=== PATIENT | female | born 1980 | race Caucasian/White ===

== ENCOUNTER 2016-05-27 17:44 | Emergency (ER) | payer OTHER ==
[2016-05-27 18:49] LABS: Bilirubin Negative (Negative); Blood, Urine Negative (Negative); Glucose, Urine (Dipstick) Negative (Negative); Ketone, Urine Negative (Negative); Nitrite Negative (Negative); Protein, Urine (Dipstick) Negative (Neg-Trace); Urobilinogen 0.2 mg/dL (0.2-1.0)
[2016-05-27 18:51] LABS: Bacteria/HPF 1+ HPF (None Seen); Hyaline Casts/LPF NONE SEEN LPF (0-3 Hyaline); Oval Fat Bodies/HPF None Seen HPF (None Seen); RBC/HPF None Seen HPF (0-3); Renal Epithelial None Seen HPF (0-3); Sperm/HPF None Seen HPF (None Seen); Squamous Epithelial None Seen HPF (0-3); Transitional Epithelial NONE SEEN HPF (0-3); Trichomonas/HPF None Seen HPF (None Seen); WBC/HPF 0-3 HPF (0-3); Yeast-All Forms None Seen HPF (None Seen)
[2016-05-27] MEDS ORDERED: Ketorolac Tromethamine 30 MG/ML VIAL ONE (19:33)
[2016-05-27 19:35] LABS: #Basophils 0.1 thou/uL (0.0-0.2); #Eosinphils 0.3 thou/uL (0.0-0.7); #Lymphocytes 3.4 thou/uL (1.20-3.40); #Monocytes 0.5 thou/uL (0.11-0.59); #Neutrophils 6.6 thou/uL (1.40-6.50); %Basophils 0.8 % (0.0-1.0); %Eosinophils 2.6 % (0.0-10.0); %Monocytes 4.5 % (0.0-10.0); Hematocrit 44.1 % (36.0-47.0); Mean Platelet Volume 8.8 fL (7.4-10.4); Red Blood Cell (RBC) Count 5.03 mill/uL (4.20-5.40); White Blood Cell (WBC) Count 10.9 thou/uL (4.8-10.8)
[2016-05-27 19:50] LABS: ALT (SGPT) 22 U/L (0-55); AST (SGOT) 15 U/L (5-34); Alkaline Phosphatase 109 U/L (40-150); Anion Gap 13 mmol/L (10-20); BUN (Urea Nitrogen) 10 mg/dL (7.0-18.7); Bilirubin, Total 0.4 mg/dL (0.2-1.2); Calc. Creatinine Clearance 0 mL/min (70-130); Calcium 9.5 mg/dL (7.8-10.44); Carbon Dioxide 25 mmol/L (22-29); Chloride 105 mmol/L (98-107); Estimated GFR-MDRD Greater than 90; Globulin 3.5 g/dL (2.4-3.5); Protein, Total 7.8 g/dL (6.0-8.3)
[2016-05-27] MEDS ORDERED: HYDROcodone/Acetaminophen 10/325 mg Tablet ONE (20:26)
--- NOTE | 2016-05-27 21:11 | PICIS ---
[facility] EMERGENCY RECORD TRIAGE (ThuMay 27, 2016 18:12 ERUI) TRIAGE NOTES: C/O LEFT SIDE, LOWER ABD PAIN, SHARP, ONSET YESTERDAY, NO N/V/D. (ThuMay 27, 2016 18:12 ERUI) PATIENT: NAME: Leila Mckeon, AGE: 36, GENDER: female, : Thu1980, TIME OF GREET: ThuMay 27, 2016 17:44, PREFERRED LANGUAGE: Vietnamese, ETHNICITY: Not or , ECODE BILLING MAP: [facility], SSN: [id number], Zip Code: [address], KG WEIGHT: [phone], PHONE: , , , PERSON ID: [id number], PAY[place]: [place], PCP: OOT. (ThuMay 27, 2016 18:12 ERUI) COMPLAINT: LOWER ABD PAIN. (ThuMay 27, 2016 18:12 ERUI) ADMISSION: URGENCY: 3 Urgent, ADMISSION SOURCE: Home, TRANSPORT: CAR, BED: TRIAGE. (ThuMay 27, 2016 18:12 ERUI) TRIAGE SCREENING: Patient denies suicidal ideation, Patient denies presence of domestic violence. (18:16 ERUI) LMP: Last menstrual period: 05/13/2016. (18:16 ERUI) TREATMENTS IN PROGRESS: Treatments given Prehospital: NONE. (18:16 ERUI) PROVIDERS: TRIAGE NURSE: Stacie Acevedo RN. (ThuMay 27, 2016 18:12 ERUI) PREVIOUS VISIT ALLERGIES: No Known Drug Allergies. (ThuMay 27, 2016 18:12 ERUI) No Known Drug Allergies. (18:16 ERUI) KNOWN ALLERGIES No Known Allergies (Unconfirmed) No Known Drug Allergies CURRENT MEDICATIONS Cymbalta: CAPSULE,DELAYED RELEASE (ENTERIC COATED) : Strength - 30 mg : ORAL Patient Dose: Unknown. (20:22 KSPL) risperiDONE: TABLET : Strength - 0.5 mg : ORAL Patient Dose: Unknown. (20:23 KSPL) Cipro: TABLET : Strength - 500 mg : ORAL Patient Dose: 2 times a day. (20:23 KSPL) FLUoxetine: CAPSULE : Strength - 40 mg : ORAL Patient Dose: Unknown. (20:23 KSPL) Zantac: CAPSULE : Strength - 150 mg : ORAL Patient Dose: Unknown. (20:24 KSPL) VITAL SIGNS VITAL SIGNS: BP: 132/76, Pulse: 89, Resp: 20, Temp: 98.2 (Oral), Pain: 5, O2 sat: 97 on Room Air, Time: 05/27/2016 18:13. (18:13 ERUI) BP: 114/58, Pulse: 80, Resp: 18, Pain: 1, O2 sat: 99 on Room Air, Time: 05/27/2016 20:15. (20:15 KSPL) &a-1R&a+25V*p+0X*h4615G*c202B*c15G*c2P*p-0X&a-25V&a+1R Name: Leila Mckeon : 1980 F36 MedRec: [id number] AcctNum: [id number] Prepared: Kristian May 27, 2016 20:52 by Interface Page 1 of 9 pMD [facility] EMERGENCY RECORD Temp: 97.9 (Oral), Time: 05/27/2016 20:38. (20:38 MVIL) NURSING ASSESSMENT: ABDOMEN (18:16 ERUI) CONSTITUTIONAL: Patient arrives ambulatory, Gait steady, History obtained from patient, Patient appears comfortable, Patient cooperative, Patient alert, Oriented to person, place and time, Skin warm, Skin dry, Patient complains of LEFT LOWER ABD PAIN. PAIN: sharp pain, stabbing pain, to the left lower quadrant, Onset of pain 2 DAYS, on a scale 0-10 patient rates pain as 5, Pain exacerbated by, Pain exacerbated by, ambulation, Pain relieved by, SITTING DOWN. ABDOMEN: Abdomen assessment findings include abdomen symmetrical, Abdomen soft, tender, Bowel sound normal, no associated nausea, no associated vomiting, no associated diarrhea, no associated constipation, Date of last bowel movement: YESTERDAY. GENITOURINARY FEMALE: no associated urinary complaints, no associated vaginal discharge, Not . SAFETY: Side rails up, Cart/Stretcher in lowest position, Family at bedside, Call light within reach, Hospital ID band on. NURSING PROCEDURE: DISCHARGE NOTE (20:39 MVIL) DISCHARGE: Patient discharged to home, ambulating without assistance, family driving, accompanied by parent, Summary of Care printed/ provided, Patient requested and was provided an electronic copy of Discharge Instructions, Transition record given to patient, Discharge instructions given to patient, Prescriptions given and instructions on side effects given, Medication reconciliation form given, Above person(s) verbalized understanding of discharge instructions and follow-up care. BELONGINGS: Belongings and valuables with patient at time of discharge include:. NURSING PROCEDURE: IV (19:24 KSPL) PATIENT IDENITIFIER: Patient actively involved in identification process, Patient's identity verified by patient stating name, Patient's identity verified by patient stating date. IV SITE 1: IV therapy indicated for hydration, IV therapy indicated for medication administration, IV established, to the right antecubital, using a 20 gauge catheter, in one attempt, IV site prepped with chloroprep, Saline lock established, Flushed with normal saline (mls): 10 mls, Labs drawn at time of placement, labeled in the presence of the patient and sent to lab. SAFETY: Side rails up, Cart/Stretcher in lowest position, Family at bedside, Call light within reach, Hospital ID band on. NURSING PROCEDURE: TRANSPORT TO TESTS PATIENT IDENTIFIER: Patient actively involved in identification process, Patient's identity verified by patient stating name, Patient's identity verified by patient stating date. (19:36 KSPL) &a-1R&a+25V*p+0X*b7462I*c202B*c15G*c2P*p-0X&a-25V&a+1R Name: Leila Mckeon Isaiah : 1980 F36 MedRec: [id number] AcctNum: [id number] Prepared: Kristian May 27, 2016 20:52 by Interface Page 2 of 9 D [facility] EMERGENCY RECORD Patient actively involved in identification process, Patient's identity verified by patient stating name, Patient's identity verified by patient stating date. (19:58 KSPL) TRANSPORT TO TESTS: Transport indicated to facilitate diagnosis, Patient transported to CT scan, via wheelchair, Accompanied by x-ray ophthalmic technician apprentice, Accompanied by nurse. (19:36 KSPL) FOLLOW-UP: After procedure, patient returned to emergency department. (19:58 KSPL) ORDER DETAILS Order Name: CBC with Differential, Status: Active, Time: 19:12 05/27/2016, User: RICHAR, - Ordered for: DO Du Joseph, - Entered by: DO Du Joseph - Tue May 27, 2016 19:12, - Quantity: 1, Order Name: Comprehensive Metabolic Panel, Status: Active, Time: 19:12 05/27/2016, User: RICHAR, - Ordered for: DO Du Joseph, - Entered by: DO Du Joseph - Tue May 27, 2016 19:12, - Quantity: 1, Order Name: CT Abdomen Pelvis W Con, Status: Active, Time: 19:11 05/27/2016, User: RICHAR, - Ordered for: DO Du Joseph, - Entered by: DO Du Joseph - Tue May 27, 2016 19:11, - Quantity: 1, Order Name: Test, Urine (BHCG), Status: Active, Time: 19:11 05/27/2016, User: RICHAR, - Ordered for: DO Du Joseph, - Entered by: DO Du Joseph - Tue May 27, 2016 19:11, - Quantity: 1, Order Name: SALINE LOCK, Status: Done, Time: 19:32 05/27/2016, User: RACHELE, - Ordered for: DO Du Joseph, - Entered by: DO Du Joseph - Tue May 27, 2016 19:12, - Quantity: 1, Order Name: Urinalysis w/ Rflx Microscopic, Status: Active, Time: 18:14 05/27/2016, User: RICHAR, - Ordered for: DO Du Joseph, - Entered by: DO Du Joseph - Tue May 27, 2016 18:14, - Quantity: 1. MEDICATION ADMINISTRATION SUMMARY Drug Name: [place], Dose Ordered: 10 mg, Route: Oral, Status: Given, Time: 20:32 05/27/2016, Drug Name: Toradol injection, Dose Ordered: 30 mg, Route: IV Push, Status: Given, Time: 19:34 05/27/2016, Detailed record available in Medication Service section. &a-1R&a+25V*p+0X*i3817T*c202B*c15G*c2P*p-0X&a-25V&a+1R Name: Leila Mckeon : 1980 F36 MedRec: [id number] AcctNum: [id number] Prepared: ThuMay 27, 2016 20:52 by Interface Page 3 of 9 pMD [facility] EMERGENCY RECORD MEDICATION SERVICE [place]: Order: [place] (hydrocodone bitartrate/acetaminophen) - Dose: 10 mg : Oral Schedule: Now Ordered by: All Du DO Entered by: All Du DO ThuMay 27, 2016 20:26 , Acknowledged by: Susan Smith RN ThuMay 27, 2016 20:28 Documented as given by: Mildred Fierro RN May 27, 2016 20:32 Patient, Medication, Dose, Route and Time verified prior to administration. Amount given: 10MG, Correct patient, time, route, dose and medication confirmed prior to administration, Patient advised of actions and side-effects prior to administration, Allergies confirmed and medications reviewed prior to administration, Patient in position of comfort, Side rails up, Cart in lowest position, Family at bedside. Toradol injection: Order: Toradol injection (ketorolac tromethamine) - Dose: 30 mg : IV Push Schedule: Now Ordered by: All Du DO Entered by: All Du DO ThuMay 27, 2016 19:13 , Acknowledged by: Susan Smith RN ThuMay 27, 2016 19:32 Documented as given by: Susan Smith RN May 27, 2016 19:34 Patient, Medication, Dose, Route and Time verified prior to administration. Amount given: 30mg, IV SITE #1 IVP, initial medication, Slowly, Awake and alert- acceptable, Connections checked prior to administration, Line traced prior to administration, Catheter placement confirmed via flush prior to administration, IV site without signs or symptoms of infiltration during medication administration, No swelling during administration, No drainage during administration, IV flushed after administration, Correct patient, time, route, dose and medication confirmed prior to administration, Patient advised of actions and side-effects prior to administration, Allergies confirmed and medications reviewed prior to administration, Patient in position of comfort, Side rails up, Cart in lowest position, Family at bedside, Call light in reach, no incident, pt tolerated well. : Follow Up : Response assessment performed, No signs or symptoms of allergic reaction noted, _IV SITE #1:_, Advised not to ambulate without assistance, Patient in position of comfort, Side rails up, Cart in lowest position, Family at bedside, pt rating pain at a 1, states "it feels better". pt sitting in bed, friend at bedside, pt denies any needs at this time, no s/sx of distress noted. (19:59 KSPL) HPI ABDOMINAL PAIN (18:40 JPIP) CHIEF COMPLAINTS: Patient presents for evaluation of abdominal pain. HISTORIAN: History provided by &a-1R&a+25V*p+0X*k5937E*c202B*c15G*c2P*p-0X&a-25V&a+1R Name: Leila Mckeon : 1980 F36 MedRec: [id number] AcctNum: [id number] Prepared: Kristian May 27, 2016 20:52 by Interface Page 4 of 9 pMD [facility] EMERGENCY RECORD patient. LOCATION FEMALE: Symptoms are localized, most severe in the left lower quadrant. QUALITY: Pain is sharp in nature. SEVERITY: Current severity of pain rated as 5/10. TIME COURSE: Sudden onset of symptoms, Date and time of onset was yesterday, Symptoms are improving. ASSOCIATED WITH FEMALE: No associated chills, No associated constipation, No associated diarrhea, No associated fever, No associated hematuria, No associated loss of appetite, No associated melena, No associated nausea, No associated urinary tract infection signs or symptoms, No associated vomiting, worse with standing. RELIEVED BY: Patient's condition not relieved by bowel movement, Patient's condition not relieved by food, Patient's condition relieved by sittting helps. EXACERBATED BY: Patient's condition exacerbated by walking, Patient's condition exacerbated by standing. ROS (18:41 JPIP) CONSTITUTIONAL: Historian denies chills, denies fever. GI: Historian reports abdominal pain, denies constipation, denies diarrhea, denies nausea, denies vomiting. GENITOURINARY FEMALE: Historian denies dysuria, denies frequency, denies hematuria, denies urgency. SKIN: Historian reports rash, umbilical infection she is currently on ?? ABX for this. NOTES: All systems reviewed, negative except as described above. PAST MEDICAL HISTORY MEDICAL HISTORY: Notes: ASTHMA, Flu vaccine not up to date, Tetanus not up to date, Pneumococcal vaccine not up to date. (18:16 ERUI) FEMALE SURGICAL HISTORY: Surgical history of section, Date of surgery 2006, Surgical history of section hernia repair, 05/27/16. (18:16 ERUI) PSYCHIATRIC HISTORY: Psychiatric history includes history of suicide attempts, by Overdose, Psychiatric history includes, depression.Verified 05/27/16. (18:16 ERUI) SOCIAL HISTORY: Patient denies alcohol use, Patient denies drug use, Patient currently uses tobacco, smokes cigarettes, daily, Patient smokes 1/2 packs per day, Lives at home, alone, Patient denies alcohol use, Patient denies drug use, Patient currently uses tobacco, smokes cigarettes, daily, Patient smokes 1 pack per day.RevieweD 05/27/16. (18:16 ERUI) NOTES: Nursing records reviewed, Medication list reviewed. (18:45 JPIP) PHYSICAL EXAM (18:44 JPIP) CONSTITUTIONAL: Vital Signs Reviewed, Patient afebrile, Pulse normal, Blood pressure normal, Respiratory rate normal, Patient appears, in mild pain distress, Patient alert and &a-1R&a+25V*p+0X*h8189C*c202B*c15G*c2P*p-0X&a-25V&a+1R Name: Leila Mckeon : 1980 F36 MedRec: [id number] AcctNum: [id number] Prepared: Kristian May 27, 2016 20:52 by Interface Page 5 of 9 pMD [facility] EMERGENCY RECORD oriented to person, place and time, Nursing notes reviewed. HEAD: Head exam included findings of head atraumatic, normocephalic. EYES: Eye exam included findings of eyelids normal to inspection, Conjunctiva normal, Sclera normal, no periorbital ecchymosis, no periorbital edema, no periorbital erythema. RESPIRATORY CHEST: Respiratory exam included findings of no respiratory distress, Breath sounds clear. CARDIOVASCULAR: Cardiovascular exam included findings of heart rate regular rate and rhythm, Heart sounds normal. ABDOMEN FEMALE: Abdominal exam included findings of abdomen tender, to the left lower quadrant, to the suprapubic region, moderate intensity, Bowel sounds, hypoactive, Liver normal, Spleen normal, Distension present, no mass, no pulsatile masses, no peritoneal signs, no rigidity, no guarding, no rebound. BACK: no costovertebral angle tenderness. UPPER EXTREMITY: Upper extremity exam included findings of inspection normal, Range of motion normal. NEURO: [place] coma scale 15, Neuro exam findings include patient oriented to person, place and time. SKIN: Skin exam included findings of skin warm, dry, and normal in color, Rash present, umbilical DC, clear yellow dried, no bleeding. PSYCHIATRIC: Psychiatric exam included findings of patient oriented to person place and time, Normal affect. LAB INTERPRETATION (20:22 JPIP) INTERPRETATION: CBC abnormal, White blood cell count elevated, Neutrophils elevated, Chemistry normal, Liver functions normal, Urinalysis abnormal, positive for leukocytes, positive for bacteria, Urine HCG negative, patient is on septra for an umbilical infection. EVENTS TRANSFER: Triage to Emergency Triage. (ThuMay 27, 2016 18:12 ERUI) Emergency Triage to Emergency Room -05. (18:27 ERUI) Removed from Emergency Emergency Room -05. (20:48 MVIL) O2SAT INTERPRETATION (18:14 JPIP) O2SAT: Single pulse oximetry, Oxygen saturation 97%, on room air, Oxygen saturation interpretation: Normal, No intervention required. PROBLEM LIST No recorded problems DIAGNOSIS (20:26 JPIP) FINAL: PRIMARY: Lower abdominal pain, ADDITIONAL: &a-1R&a+25V*p+0X*m2814D*c202B*c15G*c2P*p-0X&a-25V&a+1R Name: Leila Mckeon Isaiah : 1980 F36 MedRec: [id number] AcctNum: [id number] Prepared: ThuMay 27, 2016 20:52 by Interface Page 6 of 9 pMD [facility] EMERGENCY RECORD umphalitis. DISPOSITION PATIENT: Disposition Type: Discharge, Disposition: *Discharge Home, Condition: Good. (20:26 JPIP) Patient left the department. (20:48 MVIL) INSTRUCTION (20:25 JPIP) DISCHARGE: COLITIS NONINFECTIOUS CHILD ADULT, ABDOMINAL PAIN, UNKNOWN CAUSE, (FEMALE). SPECIAL: Follow up with Primary Care Physician within 72 hours If symptoms worsen please return to the ED Return to the Emergency Department for increased symptoms problems or concerns Take acetaminophen or ibuprofen for pain. PRESCRIPTION mupirocin: OINTMENT (GRAM) : 2 % : TOPICAL : Quantity: apply Unit: mg Route: TOPICAL Schedule: 2 times a day Dispense: 22 grams May substitute. Refills: No Refills . (20:22 JPIP) NOTES: No refills. (20:22 JPIP) Levsin/SL: TABLET, SUBLINGUAL : 0.125 mg : SUBLINGUAL : Quantity: 1 Unit: tab(s) Route: SUBLINGUAL Schedule: every 4 hours prn Dispense: 30 May substitute. Refills: No Refills . (20:24 JPIP) NOTES: For abdominal pain and cramps No refills. (20:24 JPIP) IMAGING *DISCHARGE INSTRUCTIONS RECEIPT: Image captured from scanner. (20:33 MVIL) *SUPPLY CHARGE SHEET: Image captured from scanner. (20:34 MVIL) RESULTS LABORATORY: Urine Microscopic Collection DT: ThuMay 27, 2016 18:33, RBC/HPF None Seen HPF, Range (0-3), WBC/HPF 0-3 HPF, Range (0-3), Squamous Epithelial None Seen HPF, Range (0-3), Transitional Epithelial NONE SEEN HPF, Range (0-3), Renal Epithelial None Seen HPF, Range (0-3), *Bacteria/HPF 1+ - H HPF, Range (None Seen), Yeast-All Forms None Seen HPF, Range (None Seen), Trichomonas/HPF None Seen HPF, Range (None Seen), Oval Fat Bodies/HPF None Seen HPF, Range (None Seen), Sperm/HPF None Seen HPF, Range (None Seen), Hyaline Casts/LPF NONE SEEN LPF, Range (0-3 Hyaline). (19:11 JPIP) Urinalysis w/ Rflx Microscopic Collection DT: ThuMay 27, 2016 18:33, Color Yellow , Range (Yellow), &a-1R&a+25V*p+0X*d9286E*c202B*c15G*c2P*p-0X&a-25V&a+1R Name: Leila Mckeon : 1980 F36 MedRec: [id number] AcctNum: [id number] Prepared: ThuMay 27, 2016 20:52 by Interface Page 7 of 9 pMD [facility] EMERGENCY RECORD Clarity Cloudy , Range (Clear), Specific [place], Urine 1.020 , Range (1.005-1.030), pH, Urine 6.0 , Range (5.0-9.0), *Leukocyte Trace - H , Range (Negative), Nitrite Negative , Range (Negative), Protein, Urine (Dipstick) Negative mg/dL, Range (Neg-Trace), Glucose, Urine (Dipstick) Negative mg/dL, Range (Negative), Ketone, Urine Negative mg/dL, Range (Negative), Urobilinogen 0.2 mg/dL, Range (0.2-1.0), Bilirubin Negative , Range (Negative), Blood, Urine Negative , Range (Negative). (19:11 JP) Test, Urine (BHCG) Collection DT: ThuMay 27, 2016 19:29, Test - Urine (BHCG) NEGATIVE , Range (NEGATIVE), Method of sensitivity- Indeterminant: results should be repeated, after 48 hours. Positive: results may be detected as early as 4-5 days before a first missed menses. Elimination of BHCG-, Elimination following first trimester D&C: 29-44 Days , Elimination following term : 8-24 Days , Specific [place] 1.020 , Range (1.002-1.036). (19:34 JP) CBC with Differential Collection DT: ThuMay 27, 2016 19:31, *White Blood Cell (WBC) Count 10.9 - H thou/uL, Range (4.8-10.8), Red Blood Cell (RBC) Count 5.03 mill/uL, Range (4.20-5.40), Hemoglobin 13.9 g/dL, Range (12.0-16.0), Hematocrit 44.1 %, Range (36.0-47.0), Mean Corpuscular Volume 87.6 fl, Range (81.0-99.0), Mean Corpuscular Hemoglobin 27.7 pg, Range (27.0-31.0), *Mean Corpuscular HGB CONC 31.6 - L g/dL, Range (32.0-36.0), RBC Distribution Width 13.5 %, Range (11.5-14.5), Platelet Count 257 thou/uL, Range (130-400), Mean Platelet Volume 8.8 fL, Range (7.4-10.4), %Neutrophils 60.5 %, Range (42.0-75.0), %Lymphocytes 31.5 %, Range (21.0-51.0), %Monocytes 4.5 %, Range (0.0-10.0), %Eosinophils 2.6 %, Range (0.0-10.0), %Basophils 0.8 %, Range (0.0-1.0), *#Neutrophils 6.6 - H thou/uL, Range (1.40-6.50), #Lymphocytes 3.4 thou/uL, Range (1.20-3.40), #Monocytes 0.5 thou/uL, Range (0.11-0.59), #Eosinphils 0.3 thou/uL, Range (0.0-0.7), #Basophils 0.1 thou/uL, Range (0.0-0.2). (19:40 [facility]) Comprehensive Metabolic Panel Collection DT: ThuMay 27, 2016 19:31, Sodium 139 mmol/L, Range (136-145), Potassium 4.0 mmol/L, Range (3.5-5.1), Chloride 105 mmol/L, Range (98-107), &a-1R&a+25V*p+0X*b4096F*c202B*c15G*c2P*p-0X&a-25V&a+1R Name: Moncho Mckeonrory Colon : 1980 F36 MedRec: [id number] AcctNum: [id number] Prepared: ThuMay 27, 2016 20:52 by Interface Page 8 of 9 pMD [facility] EMERGENCY RECORD Carbon Dioxide 25 mmol/L, Range (22-29), Anion Gap 13 mmol/L, Range (10-20), BUN (Urea Nitrogen) 10 mg/dL, Range (7.0-18.7), Creatinine 0.73 mg/dL, Range (0.6-1.1), Estimated GFR-MDRD Greater than 90 , Reference Range for Estimated GFR: Greater than 90, mL/min/1.73 m2 NOTE: The MDRD equation has not been validated for use, with the elderly (over 70 years of age), women, patients with, serious comorbid condition or persons with extremes of body size, muscle, mass, or nutritional status. , Glucose 84 mg/dL, Range (70-105), Calcium 9.5 mg/dL, Range (7.8-10.44), Bilirubin, Total 0.4 mg/dL, Range (0.2-1.2), Protein, Total 7.8 g/dL, Range (6.0-8.3), NOTE: Plasma values are generally 0.3 to 0.5 g/dL higher than serum values, due to the presence of fibrinogen. , Albumin 4.3 g/dL, Range (3.5-5.0), Globulin 3.5 g/dL, Range (2.4-3.5), Alb/Glob Ratio 1.2 g/dL, Range (1.2-2.2), Alkaline Phosphatase 109 U/L, Range (40-150), AST (SGOT) 15 U/L, Range (5-34), ALT (SGPT) 22 U/L, Range (0-55). (19:56 [facility]) Ray: ERUI=FANTASMA Acevedo, Stacie LEEIP=DO Du Joseph KSANASTASIA=FANTASMA Smith, Susan MVIL=FANTASMA Fierro, Mildred &a-1R&a+25V*p+0X*h7787M*c202B*c15G*c2P*p-0X&a-25V&a+1R Name: Moncho Mckeonrory Colon : 1980 F36 MedRec: [id number] AcctNum: [id number] Prepared: Kristian May 27, 2016 20:52 by Interface Page 9 of 9 pMD MTDD
--- NOTE | 2016-05-28 06:19 | CT ---
PRELIMINARY REPORT/[facility]/EMERGENCY AFTER HOURS PROCEDURE: EXAM: CT Abdomen and Pelvis With Intravenous Contrast. CLINICAL HISTORY: 36 years old, female; Pain; Abdominal pain; Localized; Lower; Patient HX: Pt presents to the er for lower abdomen pain; C/O left side, lower abd pain, sharp, onset yesterday, no n/v/d. R/O diverticuli tis; Additional info: iv contrast only per er md TECHNIQUE: Axial computed tomography images of the abdomen and pelvis with intravenous contrast. Coronal reformatted images were created and reviewed. CONTRAST: 94 mL of ISOVUE 370 administered intravenously. COMPARISON: No relevant prior studies available. FINDINGS: Artifacts: There is detector artifact which somewhat limits evaluation of objects in the center of t he field of view. Lower thorax: No acute findings. ABDOMEN: Liver: There is hepatomegaly. Gallbladder and bile ducts: Unremarkable. No calcified stones. No ductal dilation. Pancreas: Unremarkable. No mass. No ductal dilation. Spleen: Unremarkable. No splenomegaly. Adrenals: There is mild nodular thickening of the left adrenal gland. Kidneys and ureters: Unremarkable. No solid mass. No hydronephrosis. Stomach and bowel: Unremarkable. No obstruction. No mucosal thickening. Appendix: The appendix is unremarkable and seen best on axial image 61 of series 2. PELVIS: Bladder: Unremarkable. No mass. Reproductive: Unremarkable as visualized. ABDOMEN and PELVIS: Intraperitoneal space: Unremarkable. No free air. No significant fluid collection. Bones/joints: There are mild degenerative changes of the spine. No acute fracture. No dislocation. Soft tissues: There may be scarring in the periumbilical region including in the subcutaneous fat la erin of the ventral pelvis in the midline, cannot exclude cellulitis. Vasculature: Unremarkable. No abdominal aortic aneurysm. Lymph nodes: Unremarkable. No enlarged lymph nodes. IMPRESSION: 1. There may be scarring in the periumbilical region including in the subcutaneous fat layer of the ventral pelvis in the midline, cannot exclude cellulitis. 2. No other acute CT pathology the abdomen or pelvis. Thank you for allowing us to participate in the care of your patient. Dictated and Authenticated by: Chidi Batres MD 05/27/2016 8:14 PM Central Time ([place] \T\ [place]) FINAL REPORT CT ABDOMEN AND PELVIS WITH CONTRAST 05/27/16 CT of the abdomen and pelvis was done using IV contrast only by request for evaluation of lower abdo farzana pain. Axial slices were acquired, and coronal reconstructions were done. The lung bases are clear. The liver, spleen, and pancreas were unremarkable in appearance. The aorta is normal in size. There may be some gallstones in the gallbladder, but an ultrasound would be need ed to be certain. The left adrenal gland is slightly nodular but no masses of concern were seen in e ither. The kidneys show no mass or hydronephrosis. The bowel is nondistended. There is an abundance of ring artifact in the pelvis which obscures some of the lower bowel. Nevertheless, all the segments seen do not seem to have any inflammatory changes around them to suggest diverticulitis. No free air or free fluid was seen. There is no signs of graciela endicitis. CT of the pelvis shows no pelvic masses or other acute pathology within the limitations of the artif act mentioned above. No free fluid is present. No inflammatory changes are seen. There are degenerative changes in the lumbar spine which are difficult to quantify due to artifact. There is streaking in the soft tissues of the periumbilical region. This is probably old scarring lo oking at the prior CT scan of 02/13/16 where there was an ovoid fluid collection in this region prev iously. IMPRESSION: 1. No acute intra-abdominal process seen. 2. Possible gallstones. Ultrasound would be needed for confirmation. 3. Areas of scarring in the periumbilical region. Report in agreement with preliminary reading by Taisha. POS: HOME
== END 2016-05-27 20:31 | disposition home or self-care (01) ==
LOC: BURERS 17:44
DX: L08.82 Omphalitis not of newborn (principal); J45.909 Unspecified asthma, uncomplicated; F32.9 Major depressive disorder, single episode, unspecified; F17.210 Nicotine dependence, cigarettes, uncomplicated; Z79.899 Other long term (current) drug therapy; Z79.2 Long term (current) use of antibiotics
CPT/HCPCS: 74177; 80053; 81003; 81015; 81025; 85025; 96374; J1885

== ENCOUNTER 2016-10-02 11:06 | Outpatient (CLI) | payer OTHER ==
[2016-10-02 13:41] LABS: Blood, Urine Large (Negative); Clarity Turbid (Clear); Glucose, Urine (Dipstick) Negative (Negative); Leukocyte Negative (Negative); Nitrite Negative (Negative); Protein, Urine (Dipstick) 100 mg/dL (Neg-Trace); pH, Urine 5.5 (5.0-9.0)
[2016-10-02 14:06] LABS: Bacteria/HPF 2+ HPF (None Seen); Bilirubin Small (Negative); RBC/HPF GREATER THAN 50-TNTC HPF (0-3); Specific Gravity, Urine 1.027 (1.005-1.030); Squamous Epithelial 0-3 HPF (0-3); WBC/HPF 0-3 HPF (0-3)
== END 2016-10-02 11:07 | disposition home or self-care (01) ==
LOC: HPCALD 11:06
PROVIDERS: ATTEND Family Medicine
DX: N39.0 Urinary tract infection, site not specified (principal)
CPT/HCPCS: 81001; 87086

== ENCOUNTER 2020-09-08 12:16 | Emergency (ER) | payer OTHER ==
[2020-09-08] MEDS ORDERED: Lidocaine 1% w/Epinephrine 1:100K 20 ML VIAL ONE (12:59)
== END 2020-09-08 13:25 | disposition home or self-care (01) ==
LOC: BURERS 12:16
DX: L02.411 Cutaneous abscess of right axilla (principal); J45.909 Unspecified asthma, uncomplicated; F17.210 Nicotine dependence, cigarettes, uncomplicated; Z79.899 Other long term (current) drug therapy
CPT/HCPCS: 10060; 87070; 87077; 87186; 87205

== ENCOUNTER 2020-12-03 17:12 | Emergency (ER) | payer OTHER ==
[2020-12-03 20:01] LABS: #Basophils 0.1 thou/uL (0.0-0.2); #Eosinphils 0.2 thou/uL (0.0-0.7); #Lymphocytes 3.3 thou/uL (1.20-3.40); #Monocytes 0.7 thou/uL (0.11-0.59); #Neutrophils 6.8 thou/uL (1.40-6.50); %Basophils 0.5 % (0.0-1.0); %Eosinophils 1.4 % (0.0-10.0); %Monocytes 6.2 % (0.0-10.0); %Neutrophils 61.9 % (42.0-75.0); Hemoglobin 10.9 g/dL (12.0-16.0); Mean Corpuscular HGB CONC 31.2 g/dL (32.0-36.0); Mean Corpuscular Hemoglobin 22.3 pg (27.0-31.0); Mean Corpuscular Volume 71.6 fL (78.0-98.0); Mean Platelet Volume 8.7 fL (7.4-10.4); Platelet Count 299 thou/uL (130-400); RBC Distribution Width 15.1 % (11.5-14.5); Red Blood Cell (RBC) Count 4.88 mill/uL (4.20-5.40); White Blood Cell (WBC) Count 10.9 thou/uL (4.8-10.8)
[2020-12-03 20:09] LABS: ALT (SGPT) 10 U/L (8-55); AST (SGOT) 10 U/L (5-34); Albumin 3.5 g/dL (3.5-5.0); Alkaline Phosphatase 111 U/L (40-110); Anion Gap 12 mmol/L (10-20); BUN (Urea Nitrogen) 9 mg/dL (7.0-18.7); Bilirubin, Total 0.3 mg/dL (0.2-1.2); Calc. Creatinine Clearance 0 mL/min (70-130); Calcium 9.1 mg/dL (7.8-10.44); Carbon Dioxide 26 mmol/L (22-29); Chloride 107 mmol/L (98-107); Glucose 91 mg/dL (70-105); Potassium 3.6 mmol/L (3.5-5.1); Protein, Total 7.5 g/dL (6.0-8.3); Sodium 141 mmol/L (136-145)
[2020-12-03 20:26] LABS: Hypochromia SLIGHT = 6-15 cells (100X) (0-5/hpf); MDiff Complete? YES; Microcytosis MODERATE=15-30 cells (100X) (0-5/hpf); Spherocytes SLIGHT = 1-5 cells (100X) (None Seen)
[2020-12-04 11:29] LABS: SARS-CoV-2 PCR by NAA DETECTED (NotDetected)
== END 2020-12-03 20:26 | disposition home or self-care (01) ==
LOC: BURERS 17:12
DX: U07.1 COVID-19 (principal); J45.909 Unspecified asthma, uncomplicated; F17.210 Nicotine dependence, cigarettes, uncomplicated
CPT/HCPCS: 71045; 80053; 83605; 84484; 85025; 93005; U0003; U0005

== ENCOUNTER 2021-03-14 18:27 | Emergency (ER) | payer OTHER | END 2021-03-14 19:45 | disposition home or self-care (01) | LOC: BURERS 18:27 | DX: S00.03XA Contusion of scalp, initial encounter (principal); S10.93XA Contusion of unspecified part of neck, initial encounter; S20.211A Contusion of right front wall of thorax, initial encounter; F17.210 Nicotine dependence, cigarettes, uncomplicated; Y04.0XXA Assault by unarmed brawl or fight, initial encounter | CPT/HCPCS: 70450; 71250; 72125 ==

== ENCOUNTER 2021-04-17 00:08 | Emergency (ER) | payer OTHER ==
[2021-04-17] MEDS ORDERED: Acetaminophen 325 MG Suppository ONE (01:43)
[2021-04-17] MEDS ORDERED: Ibuprofen 200 MG TAB ONE (01:43)
[2021-04-17] MEDS ORDERED: Acetaminophen 325 MG TAB ONE (01:44)
[2021-04-17 02:27] LABS: ALT (SGPT) 16 U/L (8-55); AST (SGOT) 15 U/L (5-34); Albumin 4.3 g/dL (3.5-5.0); Alkaline Phosphatase 120 U/L (40-110); Anion Gap 15 mmol/L (10-20); BUN (Urea Nitrogen) 14 mg/dL (7.0-18.7); Bilirubin, Total 0.4 mg/dL (0.2-1.2); Calc. Creatinine Clearance 0 mL/min (70-130); Calcium 9.9 mg/dL (7.8-10.44); Carbon Dioxide 24 mmol/L (22-29); Chloride 105 mmol/L (98-107); Globulin 4.1 g/dL (2.4-3.5); Glucose 113 mg/dL (70-105); Lipase 26 U/L (8-78); Potassium 3.9 mmol/L (3.5-5.1); Protein, Total 8.4 g/dL (6.0-8.3); Sodium 140 mmol/L (136-145)
[2021-04-17 02:30] LABS: BHCG - Serum Negative (NEGATIVE); Pregs Control Background? CLEAR/WHITE (CLR/WHITE); Pregs Control Bar Appear? YES (CONTROL BAR)
[2021-04-17 02:39] LABS: Bilirubin Small (Negative); Blood, Urine Moderate (Negative); Clarity Cloudy (Clear); Glucose, Urine (Dipstick) Negative (Negative); Ketone, Urine Trace mg/dL (Negative); Leukocyte Negative (Negative); Nitrite Negative (Negative); Protein, Urine (Dipstick) 30 mg/dL (Neg-Trace); Specific Gravity, Urine 1.025 (1.005-1.030); pH, Urine 6.5 (5.0-9.0)
[2021-04-17 02:49] LABS: Hemoglobin 9.8 g/dL (12.0-16.0); Mean Corpuscular HGB CONC 30.1 g/dL (32.0-36.0); Mean Platelet Volume 8.7 fL (7.4-10.4); Platelet Count 413 thou/uL (130-400); RBC Distribution Width 15.8 % (11.5-14.5); Red Blood Cell (RBC) Count 5.17 mill/uL (4.20-5.40); White Blood Cell (WBC) Count 13.5 thou/uL (4.8-10.8)
[2021-04-17 02:52] LABS: #Basophils 0.1 thou/uL (0.0-0.2); #Eosinphils 0.2 thou/uL (0.0-0.7); #Lymphocytes 3.8 thou/uL (1.20-3.40); #Monocytes 0.4 thou/uL (0.11-0.59); #Neutrophils 9.2 thou/uL (1.40-6.50); %Basophils 0.7 % (0.0-1.0); %Eosinophils 1.2 % (0.0-10.0); %Lymphocytes 27.7 % (21.0-51.0); %Monocytes 2.6 % (0.0-10.0); %Neutrophils 67.8 % (42.0-75.0)
[2021-04-17 02:58] LABS: Bacteria/HPF Rare-Few HPF (None Seen); RBC/HPF 21-50 HPF (0-3); Squamous Epithelial 0-3 HPF (0-3); WBC/HPF 0-3 HPF (0-3)
[2021-04-17 02:59] LABS: Mucous/LPF 1+ LPF (<2+)
[2021-04-17 03:31] LABS: Hypochromia SLIGHT = 6-15 cells (100X) (0-5/hpf); MDiff Complete? YES; Microcytosis SLIGHT = 6-15 cells (100X) (0-5/hpf); Platelet Morphology Comment Appears Adequate; Reflex for Review?? YES
[2021-04-17] MEDS ORDERED: Iopamidol 370 76% 100 ML VIAL ONE (09:32)
== END 2021-04-17 06:43 | disposition home or self-care (01) ==
LOC: BURERS 00:08
DX: N94.6 Dysmenorrhea, unspecified (principal); I10 Essential (primary) hypertension; F17.210 Nicotine dependence, cigarettes, uncomplicated
CPT/HCPCS: 74177; 80053; 81003; 81015; 83605; 83690; 84703; 85025; 85060; Q9967

== ENCOUNTER 2021-12-17 16:25 | Emergency (ER) | payer OTHER ==
[2021-12-17 17:42] LABS: #Basophils 0.1 thou/uL (0.0-0.2); #Lymphocytes 2.2 thou/uL (1.20-3.40); #Monocytes 0.4 thou/uL (0.11-0.59); #Neutrophils 6.1 thou/uL (1.40-6.50); %Basophils 0.6 % (0.0-1.0); %Eosinophils 9.9 % (0.0-10.0); %Lymphocytes 22.4 % (21.0-51.0); %Monocytes 4.4 % (0.0-10.0); %Neutrophils 62.7 % (42.0-75.0); Hemoglobin 6.5 g/dL (12.0-16.0); Mean Corpuscular HGB CONC 29.8 g/dL (32.0-36.0); Mean Corpuscular Volume 63.7 fL (78.0-98.0); Mean Platelet Volume 6.5 fL (7.4-10.4); Platelet Count 263 thou/uL (130-400); RBC Distribution Width 17.8 % (11.5-14.5); Red Blood Cell (RBC) Count 3.41 mill/uL (4.20-5.40); White Blood Cell (WBC) Count 9.8 thou/uL (4.8-10.8)
[2021-12-17 17:54] LABS: BHCG - Serum Negative (NEGATIVE); Pregs Control Background? CLEAR/WHITE (CLR/WHITE); Pregs Control Bar Appear? YES (CONTROL BAR)
[2021-12-17 18:00] LABS: ALT (SGPT) 10 U/L (8-55); AST (SGOT) 9 U/L (5-34); Albumin 3.1 g/dL (3.5-5.0); Alkaline Phosphatase 99 U/L (40-110); Anion Gap 9 mmol/L (10-20); BUN (Urea Nitrogen) 6 mg/dL (7.0-18.7); Bilirubin, Total 0.2 mg/dL (0.2-1.2); Calc. Creatinine Clearance 0 mL/min (70-130); Calcium 8.5 mg/dL (7.8-10.44); Carbon Dioxide 25 mmol/L (22-29); Chloride 110 mmol/L (98-107); Estimated GFR 97; Globulin 2.6 g/dL (2.4-3.5); Glucose 102 mg/dL (70-105); Potassium 3.8 mmol/L (3.5-5.1); Protein, Total 5.7 g/dL (6.0-8.3); Sodium 140 mmol/L (136-145)
[2021-12-17 18:14] LABS: Anisocytosis SLIGHT = 6-15 cells (100X) (0-5/hpf); MDiff Complete? YES; Microcytosis MODERATE=15-30 cells (100X) (0-5/hpf); Ovalocytes SLIGHT = 2-5 cells (100X) (0-1/hpf); Platelet Morphology Comment Appears Adequate; Reflex for Review?? NO
[2021-12-17] MEDS ORDERED: Morphine 4 MG/ML VIAL ONE (19:26)
== END 2021-12-17 20:30 | disposition short-term general hospital (02) ==
LOC: BURERS 16:25
DX: N93.9 Abnormal uterine and vaginal bleeding, unspecified (principal); D64.9 Anemia, unspecified; R73.09 Other abnormal glucose; I10 Essential (primary) hypertension; J44.9 Chronic obstructive pulmonary disease, unspecified
CPT/HCPCS: 36415; 36430; 80053; 84703; 85025; 85610; 86850; 86900; 86901; 96374; J2270; P9016

== ENCOUNTER 2021-12-23 17:38 | Emergency (ER) | payer OTHER ==
[2021-12-23 18:05] LABS: #Basophils 0.1 thou/uL (0.0-0.2); #Eosinphils 0.7 thou/uL (0.0-0.7); #Lymphocytes 2.4 thou/uL (1.20-3.40); #Monocytes 0.4 thou/uL (0.11-0.59); %Basophils 0.7 % (0.0-1.0); %Eosinophils 6.1 % (0.0-10.0); %Monocytes 3.3 % (0.0-10.0); Hemoglobin 7.1 g/dL (12.0-16.0); Mean Corpuscular HGB CONC 30.1 g/dL (32.0-36.0); Mean Corpuscular Hemoglobin 21.7 pg (27.0-31.0); Mean Corpuscular Volume 72.3 fL (78.0-98.0); Mean Platelet Volume 8.7 fL (7.4-10.4); Platelet Count 263 thou/uL (130-400); RBC Distribution Width 23.1 % (11.5-14.5); Red Blood Cell (RBC) Count 3.25 mill/uL (4.20-5.40); White Blood Cell (WBC) Count 11.6 thou/uL (4.8-10.8)
[2021-12-23 18:08] LABS: Prothrombin Time 12.8 sec (12.0-14.7)
[2021-12-23 18:16] LABS: ALT (SGPT) Less than 7 U/L (8-55); AST (SGOT) 8 U/L (5-34); Albumin 3.3 g/dL (3.5-5.0); Alkaline Phosphatase 78 U/L (40-110); Anion Gap 11 mmol/L (10-20); BHCG - Serum Negative (NEGATIVE); BUN (Urea Nitrogen) 7 mg/dL (7.0-18.7); Bilirubin, Total 0.3 mg/dL (0.2-1.2); Calc. Creatinine Clearance 0 mL/min (70-130); Calcium 8.1 mg/dL (7.8-10.44); Carbon Dioxide 21 mmol/L (22-29); Chloride 110 mmol/L (98-107); Estimated GFR 117; Globulin 2.8 g/dL (2.4-3.5); Glucose 96 mg/dL (70-105); Potassium 3.5 mmol/L (3.5-5.1); Pregs Control Background? CLEAR/WHITE (CLR/WHITE); Pregs Control Bar Appear? YES (CONTROL BAR); Protein, Total 6.1 g/dL (6.0-8.3); Sodium 138 mmol/L (136-145)
[2021-12-23 18:18] LABS: MDiff Complete? YES
[2021-12-23] MEDS ORDERED: Morphine 4 MG/ML VIAL ONE (20:31)
== END 2021-12-23 20:49 | disposition short-term general hospital (02) ==
LOC: BURERS 17:38
DX: N93.9 Abnormal uterine and vaginal bleeding, unspecified (principal); D64.9 Anemia, unspecified; J44.9 Chronic obstructive pulmonary disease, unspecified; F17.210 Nicotine dependence, cigarettes, uncomplicated
CPT/HCPCS: 36415; 36430; 80053; 84703; 85025; 85610; 86850; 86900; 86901; 96374; J2270; P9016

== ENCOUNTER 2022-01-23 11:39 | Emergency (ER) | payer OTHER ==
[2022-01-23 12:04] LABS: #Basophils 0.1 thou/uL (0.0-0.2); #Lymphocytes 1.9 thou/uL (1.20-3.40); #Monocytes 0.3 thou/uL (0.11-0.59); #Neutrophils 4.6 thou/uL (1.40-6.50); %Basophils 0.6 % (0.0-1.0); %Eosinophils 13.2 % (0.0-10.0); %Lymphocytes 23.9 % (21.0-51.0); %Monocytes 3.6 % (0.0-10.0); %Neutrophils 58.6 % (42.0-75.0); Hemoglobin 9.8 g/dL (12.0-16.0); Mean Corpuscular HGB CONC 30.4 g/dL (32.0-36.0); Mean Corpuscular Hemoglobin 21.8 pg (27.0-31.0); Mean Corpuscular Volume 71.7 fL (78.0-98.0); Mean Platelet Volume 7.2 fL (7.4-10.4); Platelet Count 273 thou/uL (130-400); RBC Distribution Width 21.4 % (11.5-14.5); Red Blood Cell (RBC) Count 4.49 mill/uL (4.20-5.40); White Blood Cell (WBC) Count 7.8 thou/uL (4.8-10.8)
[2022-01-23 12:14] LABS: PTT 30.7 sec (22.9-36.1); Prothrombin Time 13.3 sec (12.0-14.7)
[2022-01-23 12:16] LABS: BHCG - Serum Negative (NEGATIVE); Pregs Control Background? CLEAR/WHITE (CLR/WHITE); Pregs Control Bar Appear? YES (CONTROL BAR)
[2022-01-23 12:17] LABS: ALT (SGPT) 9 U/L (8-55); AST (SGOT) 10 U/L (5-34); Albumin 3.6 g/dL (3.5-5.0); Alkaline Phosphatase 83 U/L (40-110); Anion Gap 9 mmol/L (10-20); BUN (Urea Nitrogen) 6 mg/dL (7.0-18.7); Bilirubin, Total 0.4 mg/dL (0.2-1.2); Calc. Creatinine Clearance 0 mL/min (70-130); Calcium 8.7 mg/dL (7.8-10.44); Carbon Dioxide 25 mmol/L (22-29); Chloride 111 mmol/L (98-107); Estimated GFR 113; Glucose 97 mg/dL (70-105); Potassium 3.8 mmol/L (3.5-5.1); Protein, Total 6.6 g/dL (6.0-8.3); Sodium 141 mmol/L (136-145)
[2022-01-23 12:39] LABS: MDiff Complete? YES; Platelet Morphology Comment Appears Adequate; RBC Morphology Normal
[2022-01-23 12:42] LABS: Bilirubin Negative (Negative); Blood, Urine Moderate (Negative); Clarity Clear (Clear); Glucose, Urine (Dipstick) Negative (Negative); Ketone, Urine Negative (Negative); Leukocyte Negative (Negative); Nitrite Negative (Negative); Protein, Urine (Dipstick) Negative (Neg-Trace); Urobilinogen 0.2 mg/dL (Less than 2)
[2022-01-23 12:50] LABS: WBC/HPF 0-3 HPF (0-3)
[2022-01-23 12:51] LABS: Bacteria/HPF Rare-Few HPF (None Seen); Mucous/LPF Few LPF (<2+); Squamous Epithelial None Seen HPF (0-3)
== END 2022-01-23 14:05 | disposition home or self-care (01) ==
LOC: BURERS 11:39
DX: N94.6 Dysmenorrhea, unspecified (principal); J44.9 Chronic obstructive pulmonary disease, unspecified; F17.210 Nicotine dependence, cigarettes, uncomplicated
CPT/HCPCS: 80053; 81003; 81015; 84703; 85025; 85610; 85730; 99284